=== PATIENT | female | born 1980 ===

== ENCOUNTER 2021-07-31 06:30 | Day surgery (SDC) | payer OTHER ==
[~2021-07-31] VITALS: Ht 157.5 cm; Wt 74.8 kg
== END 2021-07-31 16:45 | disposition home or self-care (01) ==
LOC: CIR.AMB 06:30
PROVIDERS: ATTEND Student in an Organized Health Care Education/Training Program
DX: N72 Inflammatory disease of cervix uteri (principal); Q51.828 Other congenital malformations of cervix; Z20.822 Contact with and (suspected) exposure to COVID-19